=== PATIENT | female | born 1990 | race Caucasian/White ===

== ENCOUNTER → 2016-12-09 | Outpatient (CLI) | payer MEDICARE, MEDICAID ==
[~2016-12-09] MED LIST: INDERAL-DPS80 MG PO; LAMICTAL DPS25 MG PO; NORCO 5-325 TA1 EACH PO
== END | disposition home or self-care (01) ==
LOC: RAD.S 08:06
DX: R31.0 Gross hematuria (principal); R32 Unspecified urinary incontinence; N32.89 Other specified disorders of bladder

== ENCOUNTER 2016-12-11 17:52 | Emergency (ER) | payer MEDICARE, MEDICAID ==
--- NOTE | 2016-12-13 19:25 | ER ---
ADMIT: 12/11/2016 RM/LOC: ER [facility] MR#: [id number] [address] [id number] [facility] [address] [place] [address] Emergency Room Report SEX: F AGE: 25 : 1990 DATE: 12/11/2016 ADDENDUM: CHIEF COMPLAINT: Right lower quadrant pain. HISTORY OF PRESENT ILLNESS: This is a 25-year-old, who had this pain for a couple weeks now. She was evaluated by her primary care physician in 2 days ago, and she had a CT done of her abdomen, which showed right ovarian cyst and also some mesenteric lymphadenopathy. I told her it is probably more of mesenteric adenitis that is causing her pain, but could be this is a little bit also. She is here only for pain control. I am sending her home with [address] [place] [address]. Told her to follow up with her primary care physician tomorrow with any further concerns. CLINICAL IMPRESSION: 1. Mesenteric adenitis. 2. Right ovarian cyst. [facility] / Alonso Wayne MD / nate JOB #: [id number] CC: Alonso Wayne MD, Attending Physician Krunal Peck PA-C, Family Physician
== END 2016-12-11 18:30 | disposition home or self-care (01) ==
LOC: ER 17:52
DX: N83.201 Unspecified ovarian cyst, right side (principal); I88.0 Nonspecific mesenteric lymphadenitis; Z79.899 Other long term (current) drug therapy